=== PATIENT | female | born 1945 | race Caucasian/White ===

== ENCOUNTER 2016-07-29 05:59 | Day surgery (SDC) | payer SELFPAY ==
[2016-07-28 10:47] VITALS: BMI 23.6
[2016-07-29] MEDS ORDERED: HEPARIN NA (PORCINE) 5,000 UNITS/ML 1ML VIAL ONE (06:38)
[2016-07-29] MEDS ORDERED: EPINEPHrine/PF 1 MG/1 ML (1:1,000) AMPULE ONE (07:07)
[2016-07-29] MEDS ORDERED: LIDOCAINE HCL 1%, 10 MG/ML (20ML VIAL) ONE (07:07)
[2016-07-29] MEDS ORDERED: ROCURONIUM BROMIDE 50 MG/5 ML VIAL ONE ×2 (07:40→09:40)
[2016-07-29] MEDS ORDERED: PROPOFOL 20 ML ONE ×5 (07:40→11:04)
[2016-07-29] MEDS ORDERED: MIDAZOLAM HCL 2 MG/2 ML SINGLE DOSE VIAL ONE (07:40)
[2016-07-29] MEDS ORDERED: ePHEDrine SULFATE 50 MG/1 ML AMPULE ONE (08:19)
[2016-07-29] MEDS ORDERED: BACITRACIN 30 GM TUBE TOPICAL OINTMENT ONE (09:40)
[2016-07-29] MEDS ORDERED: BUPIVACAINE HCL/PF 2.5 MG/ML - 30 ML VIAL IJ ONE (09:47)
[2016-07-29] MEDS ORDERED: BUPIVACAINE HCL/PF 0.25% (2.5MG/ML) 10 ML VIAL IJ ONE (10:09)
[2016-07-29] MEDS ORDERED: NEOSTIGMINE METHYLSULFATE 0.5 MG/ML - 10 ML MDV ONE (10:19)
[2016-07-29] MEDS ORDERED: hydrALAZINE HCL 20 MG/ML VIAL ONE (10:21)
[2016-07-29] MEDS ORDERED: ONDANSETRON 4 MG/2 ML VIAL IVPB PRN (12:09)
[2016-07-29] MEDS ORDERED: LACTATED RINGERS SOLUTION 1,000 ML IV SCH (12:15)
[2016-07-29] MEDS: morphine CARPU-JECT 10 MG/1 ML DISP.SYRIN IVPUSH PRN ×3 (13:49→22:53)
[2016-07-29] MEDS: oxyCODONE HCL 5 MG TABLET PO PRN ×2 (15:30→21:08)
[2016-07-29] MEDS: CEFAZOLIN 1 GM/D5W 50 ML IVPB SCH ×2 (15:30→21:02)
--- NOTE | 2016-07-29 16:02 | OP ---
DATE OF OPERATION: 07/29/2016 TITLE OF PROCEDURE: Abdominoplasty with bilateral flank liposuction. PREOPERATIVE DIAGNOSIS: Abdominal deformity with flank lipodystrophy. POSTOPERATIVE DIAGNOSIS: Abdominal deformity with flank lipodystrophy. ATTENDING SURGEON: Bandar Thapa MD TRANSFUSION AIDE: No assistants. ANESTHESIA: General endotracheal anesthesia. Patient additionally received 20 mL of 0.25% Marcaine plain injected into the vasculature prior to closure. DESCRIPTION OF PROCEDURE: The patient is marked in the standing position in the holding area. The incisions are on the existing scars, no new scars are to be made. The patient understands this. She is awake and aware of incisions and resulting scars. Patient is given sequential compression stockings, 5000 units of subcutaneous heparin injected preoperatively, 2 g of Ancef are given preoperatively. She is brought to the operating room, placed in a supine position. Patient is carefully positioned by surgical and anesthesia teams. All pressure points are carefully padded. She is prepped and draped in standard surgical fashion. Time-out is called. Patient, procedure, incision sites are verified. After this point, incision is made excising the abdominal scar with 2-mm width excision. Through this excision, dissection is carried down to the level of the abdominal wall fascia, where dissection is then carried along the abdominal wall fascia to the level of the umbilicus. The umbilicus is then circumcised through its existing scar from the previous abdominoplasty. It is developed on a fibrofatty stalk atraumatically. Dissection is then carried to the xiphoid process in the midline, costal margins bilaterally. Hemostasis is meticulously achieved. A midline plication is then performed in 3 layers both superior and inferior to the umbilicus. The first layer is a series of interrupted buried [id number] 1 Prolene sutures followed by a running locking 1 Prolene suture each above and below the umbilicus followed by several interrupted figure-of-8 buried 0 Prolene sutures for extra support. A small transverse plication is performed with a running locking 0 Prolene suture at areas of bulging dog ears periumbilical. This is simply for contour effect on the fascia, not for tension-bearing plication. The wound was copiously irrigated with normal saline. The tissues are repositioned, and the umbilicus is then brought back through the umbilical defect and secured with a series of interrupted buried deep dermal 3-0 Monocryl sutures followed a running 5-0 nylon suture. Size 10 flat EDEN drains are brought out through the lateral extents of the incisions. The right drain is running in the superior portion of the wound, and the left drain is running through the lower portion of the wound. Closure is then performed, first with tailor-tacking dia. All tissues are pink and viable. is of thickness of the flap, are trimmed on the undersurface judiciously. Hemostasis is once again achieved. Closure is then performed on the Scarpas layer with a series of buried Scarpas layer 2-0 Vicryl suture. At this point, the flanks are tumesced. A total of 300 mL of wetting solution is infiltrated using a wetting system. The wetting solution is 1 L of normal saline with 1 ampule of 1:1000 epinephrine, 20 mL of 1% lidocaine plain. After waiting 20 minutes for hemostatic effect of the wetting solution, liposuction is then performed. The abdominal closure is continued during this process. The closure is administered by applying drain sutures with 2-0 silk to each of the EDEN drains as part of the lateral end of the excisions. The skin is then closed with a series of interrupted buried deep dermal 3-0 Monocryl suture. The liposuction is then performed at this point, 300 mL of liposuction aspirate are yielded from the larger left flank and 200 mL of liposuction aspirate are yielded from the right flank. End-point is smooth even contour with good symmetry. Running subcuticular 3-0 Monocryl suture is then performed in the skin with a series of interrupted 5-0 nylon sutures in specific areas. All tissues appear pink and viable with good capillary refill. The drains were placed to bulb suction. An abdominal binder is applied. Patient is then transferred to her hospital bed in a flexed position with abdominal binder in place. Patient tolerated the procedure well. Jm [id number]
[2016-07-29] MEDS ORDERED: CYCLOBENZAPRINE HCL 10 MG TABLET (FP) PO PRN (21:00)
[2016-07-29] MEDS ORDERED: LORAZEPAM CARPU-JECT 2 MG/ML DISP.SYRIN IVPUSH PRN (21:00)
[2016-07-30] MEDS: CEFAZOLIN 1 GM/D5W 50 ML IVPB SCH ×3 (03:35→14:45)
--- NOTE | 2016-07-30 06:30 | PN ---
Progress Note (short form) - Note Progress Note: POD 1 VSS AF All tissues viable No collections Drains are serosanguinous- more serous. 20/40 overnight OOB ambulated, voided not taking good PO. IVF continuing c/o muscle spasm beng treated with flexeril. Pain control may require additional day of hospital stay. Will assess later.
[2016-07-30] MEDS ORDERED: morphine CARPU-JECT 4 MG/1 ML DISP.SYRIN IVPUSH PRN (06:51)
[2016-07-30] MEDS ORDERED: HEPARIN NA (PORCINE) 5,000 UNITS/ML 1ML VIAL SQ SCH (07:00)
[2016-07-30] MEDS: BACLOFEN 10 MG TABLET (FP) PO SCH ×2 (07:35→14:45)
[2016-07-30 14:48] VITALS: BP 145/93; PULSE 76; TEMP 97.7
== END 2016-07-30 16:50 | disposition home or self-care (01) ==
LOC: FASU 05:59 → FM/S 12:09 → FASU 07-30 16:50
PROVIDERS: ATTEND Plastic Surgery
PROC: 0J080ZZ Alteration of Abdomen Subcutaneous Tissue and Fascia, Open Approach (ICD-10-PCS; principal; 2016-07-29 08:27)
PROC: 0J083ZZ Alteration of Abdomen Subcutaneous Tissue and Fascia, Percutaneous Approach (ICD-10-PCS; 2016-07-29 08:27)
DX: Z41.1 Encounter for cosmetic surgery (principal); M95.8 Other specified acquired deformities of musculoskeletal system; E88.1 Lipodystrophy, not elsewhere classified
CPT/HCPCS: 94010; 94760; J0475; J1644